=== PATIENT | male | born 1940 ===

== ENCOUNTER 2024-12-28 20:39 | Emergency (ER) | payer MEDICARE ==
[2024-12-28] MEDS ORDERED: Naloxone 0.4 MG/ML SDV IVPUSH PRN (21:39)
[2024-12-28] MEDS: Ondansetron 4 MG/2 ML SDV IVPUSH ONE (21:48)
== END 2024-12-28 23:00 ==
LOC: KA.ED 20:39
DX: S00.01XA Abrasion of scalp, initial encounter (principal); M47.812 Spondylosis without myelopathy or radiculopathy, cervical region; I48.91 Unspecified atrial fibrillation; E11.22 Type 2 diabetes mellitus with diabetic chronic kidney disease; E66.9 Obesity, unspecified; N18.30 Chronic kidney disease, stage 3 unspecified; Z79.899 Other long term (current) drug therapy; Z79.01 Long term (current) use of anticoagulants; Z79.890 Hormone replacement therapy; Z68.28 Body mass index [BMI] 28.0-28.9, adult; W22.8XXA Striking against or struck by other objects, initial encounter
CPT/HCPCS: 70450; 72125; 73020-LT; 73020-RT; 96361; 96374; 96375; 99283; 99285-25; J1171; J2405; J7040